=== PATIENT | male | born 1985 | race African-American/Black ===

== ENCOUNTER 2021-02-21 23:03 | Emergency (ER) | payer OTHER, SELFPAY ==
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
[2021-02-21 23:14] VITALS: BP 139/86; PULSE 87; RESP 18; TEMP 36.3; O2SAT 98; BMI 52.2
[2021-02-21 23:20] VITALS: BP 144/86; PULSE 103
[2021-02-22 01:37] VITALS: BP 136/84; PULSE 85; RESP 18; O2SAT 98
== END 2021-02-22 01:49 | disposition home or self-care (01) ==
PROVIDERS: Emergency Provider Emergency Medicine; PCP Internal Medicine
DX: T40.901A Poisoning by unspecified psychodysleptics [hallucinogens], accidental (unintentional), initial encounter (principal); F16.129 Hallucinogen abuse with intoxication, unspecified; Y92.410 Unspecified street and highway as the place of occurrence of the external cause; Z71.51 Drug abuse counseling and surveillance of drug abuser
CPT/HCPCS: 99283

== ENCOUNTER 2021-10-29 00:45 | Emergency (ER) | payer OTHER, SELFPAY ==
[2021-10-29 01:08] VITALS: BP 146/89; PULSE 85; RESP 20; TEMP 36.3; O2SAT 98; BMI 34.9
--- NOTE | 2021-10-29 02:50 | ED_ITS ---
HPI - Dental/Oral General Chief complaint: Dental/Oral Stated complaint: dental pain Time Seen by Provider: 10/29/21 02:43 History of Present Illness HPI Narrative: Patient is a 36-year-old male presents today with having left lower molar pain. The pain is been ongoing for weeks. Getting worse. Patient unfortunately did not get a chance to see a dentist. Presented to the ED for help. Positive history of allergies to penicillin unknown what reaction he has. No coughing or congestion or upper respiratory symptoms no systemic complaints. Previously healthy Related Data Previous Rx's Medication Instructions Recorded clindamycin HCl 300 mg capsule 300 mg PO QID 5 Days #20 cap 10/29/21 (Cleocin HCl) oxycodone 5 mg tablet 5 mg PO Q8H PRN #7 tab 10/29/21 Allergies Allergy/AdvReac Type Severity Reaction Status Date / Time Penicillins Allergy Mild Hives Verified 10/29/21 01:11 Review of Systems Review of Systems: Positive toothache Yes all other systems are reviewed and are negative PMF Past Medical History Attestation statement: The following information was validated with the patient. Medical History Substance abuse Social History Social History Advance Directives: No Advance Directives Information Provided: No Physical Exam Vital Signs: Vital Signs: Last Vital Signs Temp 97.4 F 10/29/21 01:08 Pulse 85 10/29/21 01:08 Resp 20 10/29/21 01:08 BP 146/89 H 10/29/21 01:08 Pulse Ox 98 10/29/21 01:08 BMI result Body Mass Index 34.9 Appearance: Alert. Oriented X3. No acute distress. Eyes: Pupils equal, round and reactive to light. ENT: Pharynx normal. Positive cavity noted in the left 1st molar. There is no abscess palpable. Floor of the mouth is soft. Neck: Normal inspection. Neck supple. No lymph nodes noted. No crepitus CVS: Normal heart rate and rhythm. Pulses normal. Normal S1 and S2 Respiratory: No respiratory distress. Breath sounds normal. No Wheezing. No rales Abdomen: Soft and nontender. No rigidity. No distention. good BS x4 Skin: Skin warm and dry. Normal skin color. Normal skin turgor. Extremities: No lower extremity edema. Neurovascular intact to all extremities. No Lacerations. No Rash Neuro: Oriented X 3. No motor deficit. No sensory deficit. Moving all extermities. No slurred speech MDM - Dental/Oral MDM Narrative Medical decision making narrative: Positive tooth decay. Will give antibiotics. Pain medication. Patient to be discharged home. Posterior pharynx was normal. In stable condition Differential Diagnosis Differential diagnosis: Likely dental caries Lab Data Attestation: I reviewed the patient's lab results. Discharge Plan Discharge Clinical Impression: Dental caries Patient Disposition: Home, Self-Care Instructions: Toothache (ED) Prescriptions: New oxycodone 5 mg tablet 5 mg PO Q8H PRN (Reason: pain) Qty: 7 0RF clindamycin HCl [Cleocin HCl] 300 mg capsule 300 mg PO QID 5 Days Qty: 20 0RF Referrals: [facility] [Provider Group] (Please follow-up with dentist )
[2021-10-29] MEDS: Clindamycin HCL 300 MG CAPSULE PO (03:17)
[2021-10-29] MEDS: HYDROmorphone HCl 2 MG TABLET PO (03:17)
== END 2021-10-29 03:56 | disposition home or self-care (01) ==
PROVIDERS: Emergency Provider Emergency Medicine Emergency Medical Services
DX: K02.9 Dental caries, unspecified (principal); K08.89 Other specified disorders of teeth and supporting structures; F19.10 Other psychoactive substance abuse, uncomplicated
CPT/HCPCS: 99282; 99283

== ENCOUNTER 2021-12-12 00:06 | Emergency (ER) | payer OTHER, SELFPAY ==
--- NOTE | ~2021-12-12 | CT_ITS ---
EXAMINATION: CONTRAST-ENHANCED CT OF THE CHEST; CONTRAST-ENHANCED CT OF THE ABDOMEN AND PELVIS INDICATION: Trauma, chest and abdominal pain COMPARISON: None TECHNIQUE: 85 mL Omnipaque 350 IV contrast was utilized. Multidetector helical imaging was performed through the chest, abdomen, and pelvis. Coronal and sagittal reformatted images were created at the technologist workstation. DLP: 1956 mGy-cm DOSE LOWERING TECHNIQUES: This CT examination was performed using dose optimization techniques as appropriate, variously including the following: - Automated exposure control - Adjustment of mA and/or kV according to patient size (this includes techniques or standardized protocols for targeted exams were dose is matched to indication/reason for exam; i.e. extremities or head) - Use of iterative reconstruction technique FINDINGS: Chest: Detailed parenchymal evaluation is limited due to respiratory motion artifact. No regions of consolidation identified. No pneumothorax or pleural effusion. The visualized thyroid gland is unremarkable. There are subcentimeter mediastinal lymph nodes within the range of normal variation. Cardiac size is within normal limits; no pericardial effusion. The aorta is unremarkable. There is mild fluid distention of the esophagus. No axillary lymphadenopathy is present. Focal density noted in the right breast measuring approximately 3.5 x 1.9 cm. Abdomen/Pelvis: The liver is homogeneous in attenuation without intrahepatic biliary ductal dilatation. The gallbladder is unremarkable. The spleen, pancreas, and adrenal glands are within normal limits. Bilateral nephrograms are symmetric. No hydronephrosis. No obstructing renal or ureteral calculi are present. The urinary bladder is unremarkable. The prostate and seminal vesicles are unremarkable. The stomach is distended with fluid. The small and large bowel are unremarkable without evidence of obstruction or pericolonic inflammatory change. The appendix is unremarkable. No free fluid or free air is identified. The vascular structures are unremarkable. No retroperitoneal or pelvic lymphadenopathy is seen. No acute osseous findings. CT/CT abdomen pelvis w con IMPRESSION: 1. No acute traumatic findings identified in the chest, abdomen, or pelvis. 2. Focal density in the right breast measuring approximately 3.5 cm, which may reflect gynecomastia. Further workup with mammography is recommended. 3. Mild fluid distention of the esophagus, which could be due to reflux or dysmotility. Stomach is also distended with fluid.
[2021-12-12 00:22] VITALS: PULSE 80; RESP 20; TEMP 36.4; O2SAT 98; BMI 34.9
--- NOTE | 2021-12-12 00:53 | ECG_ITS ---
Test Reason : cp Blood Pressure : / mmHG Vent. Rate : 063 BPM Atrial Rate : 063 BPM P-R Int : 160 ms QRS Dur : 078 ms QT Int : 412 ms P-R-T Axes : 043 030 048 degrees QTc Int : 421 ms Normal sinus rhythm Normal ECG No previous ECGs available Referred By: Gaby Lowe Electronically Signed By:Cuate Douglass
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
[2021-12-12] MEDS: Morphine Sulfate 4 MG/ML CARTRIDGE IVPUSH (01:18)
[2021-12-12] MEDS: ondansetron HCL 4 MG/2 ML VIAL IVPUSH ×2 (01:18→03:24)
[2021-12-12] MEDS: HYDROmorphone HCl 1 MG/ML SYRINGE IVPUSH (01:40)
[2021-12-12] MEDS: iohexoL 350 MG/ML 100 ML INFUS..BTL 85 ML IV (02:07)
[2021-12-12 02:45] LABS: Basophils Absolute Auto 0.2 X10*3/uL (0.0-0.2); Basophils Percent Auto 1.3 % (0-2); Eosinophils Absolute Auto 0.8 X10*3/uL (0.0-0.4); Eosinophils Percent Auto 6.3 % (0-4); Hematocrit 46.4 % (42.0-52.0); Hemoglobin 15.4 g/dl (14.0-18.0); Imm Gran Abs Auto 0.05 X10*3/uL (0.00-0.03); Imm Gran Pct Auto 0.4 % (0.0-0.4); Lymphocytes Absolute Auto 2.7 X10*3/uL (1.2-4.9); Lymphocytes Percent Auto 22.6 % (20-40); MANUAL DIFF FLAG NO; Mean Corpuscular HGB Conc 33.2 g/dl (31.0-36.0); Mean Corpuscular Hemoglobin 31.2 pg (27.0-33.0); Mean Corpuscular Volume 94.1 fL (80.0-98.0); Mean Platelet Volume 9.7 fL (9.4-12.4); Monocytes Absolute Auto 1.2 X10*3/uL (0.1-1.2); Monocytes Percent Auto 9.7 % (2-11); Neutrophils Absolute Auto 7.1 x10*3/uL (2.0-8.3); Neutrophils Percent Auto 59.7 % (45-73); Platelet Count 210 X10*3/uL (160-400); Red Blood Count 4.93 X10*6/uL (4.60-5.80); Red Cell Distribution Width 13.3 % (11.0-16.0); White Blood Count 11.9 X10*3/uL (4.8-10.8)
[2021-12-12 03:10] LABS: Anion Gap 11 (12-20); Blood Urea Nitrogen 13 mg/dL (9-16); Calcium 8.7 mg/dL (8.4-10.2); Carbon Dioxide 26 mmol/L (22-29); Chloride 107 mmol/L (96-108); Creatinine Clr Calc Pharmacy 99.4; Estimated Glomerular Filt Rate > 60; Glucose Random 99 mg/dL (60-115); Potassium 4.1 mmol/L (3.3-5.1); Sodium 140 mmol/L (135-145)
== END 2021-12-12 03:40 | disposition home or self-care (01) ==
PROVIDERS: Nurse Practitioner Family; Emergency Provider Internal Medicine
DX: S20.211A Contusion of right front wall of thorax, initial encounter (principal); M54.6 Pain in thoracic spine; N62 Hypertrophy of breast; R10.9 Unspecified abdominal pain; R07.89 Other chest pain; W17.89XA Other fall from one level to another, initial encounter; Y93.9 Activity, unspecified; Y92.9 Unspecified place or not applicable; Y99.9 Unspecified external cause status; Z79.899 Other long term (current) drug therapy
CPT/HCPCS: 36415; 71260; 74177; 80048; 85025; 93005; 96374; 96375; 96376; 99284; J1170; J2270; J2405; Q9967

== ENCOUNTER 2022-06-22 23:39 | Emergency (ER) | payer OTHER, SELFPAY ==
--- NOTE | ~2022-06-22 | CT_ITS ---
EXAMINATION: NONCONTRAST HEAD CT NONCONTRAST CERVICAL SPINE CT INDICATION INFORMATION: Head trauma, neck pain COMPARISON: None TECHNIQUE: Separate noncontrast CT examinations of the head and cervical spine were performed. Coronal head CT images and coronal and sagittal cervical spine images were created at the technologist workstation. DLP: 1482 mGy-cm DOSE LOWERING TECHNIQUES: This CT examination was performed using dose optimization techniques as appropriate, variously including the following: - Automated exposure control - Adjustment of mA and/or kV according to patient size (this includes techniques or standardized protocols for targeted exams were dose is matched to indication/reason for exam; i.e. extremities or head) - Use of iterative reconstruction technique FINDINGS: Head: There is no evidence of acute intracranial hemorrhage or territorial infarction. No abnormal mass-effect or midline shift is seen. Hall to white matter differentiation is well preserved. No extra-axial fluid collections are identified. The ventricles are normal in size. There is no abnormal attenuation within the brain parenchyma. The osseous structures and soft tissues are normal. The mastoid air cells and visualized portions of the paranasal sinuses are well-aerated. Cervical spine: There is anatomic alignment of the vertebral bodies and posterior elements. Vertebral body heights are maintained. Disc spaces are maintained. Mild degenerative change at C4-C5. No evidence of acute fracture. No prevertebral soft tissue swelling. Visualized portions of the lung apices are unremarkable. The thyroid gland is unremarkable. CT/CT cervical spine wo IV con IMPRESSION: No acute findings identified in the head or cervical spine.
--- NOTE | ~2022-06-22 | CT_ITS ---
EXAMINATION: NONCONTRAST HEAD CT NONCONTRAST CERVICAL SPINE CT INDICATION INFORMATION: Head trauma, neck pain COMPARISON: None TECHNIQUE: Separate noncontrast CT examinations of the head and cervical spine were performed. Coronal head CT images and coronal and sagittal cervical spine images were created at the technologist workstation. DLP: 1482 mGy-cm DOSE LOWERING TECHNIQUES: This CT examination was performed using dose optimization techniques as appropriate, variously including the following: - Automated exposure control - Adjustment of mA and/or kV according to patient size (this includes techniques or standardized protocols for targeted exams were dose is matched to indication/reason for exam; i.e. extremities or head) - Use of iterative reconstruction technique FINDINGS: Head: There is no evidence of acute intracranial hemorrhage or territorial infarction. No abnormal mass-effect or midline shift is seen. Hall to white matter differentiation is well preserved. No extra-axial fluid collections are identified. The ventricles are normal in size. There is no abnormal attenuation within the brain parenchyma. The osseous structures and soft tissues are normal. The mastoid air cells and visualized portions of the paranasal sinuses are well-aerated. Cervical spine: There is anatomic alignment of the vertebral bodies and posterior elements. Vertebral body heights are maintained. Disc spaces are maintained. Mild degenerative change at C4-C5. No evidence of acute fracture. No prevertebral soft tissue swelling. Visualized portions of the lung apices are unremarkable. The thyroid gland is unremarkable. CT/CT head/brain wo IV con IMPRESSION: No acute findings identified in the head or cervical spine.
[2022-06-22 23:48] VITALS: BP 126/77; PULSE 69; RESP 20; TEMP 36.6; O2SAT 92; BMI 36.1
--- NOTE | 2022-06-23 00:27 | ED_ITS ---
HPI - Head Injury General Chief complaint: Head Injury Stated complaint: hit head, dizzy, head pain Time Seen by Provider: 06/23/22 00:16 Source: patient Mode of arrival: ambulatory Limitations: no limitations History of Present Illness HPI Narrative: 37-year-old male presents with head injury. Patient was attempting to get into his car and hit his forehead on the door frame. Patient has been dizzy, has been nauseous and vomiting since the injury with headache and neck pain. MD Complaint: head injury and head pain Onset (ago): hour(s) (Within the hour of arrival) Loss of Consciousness: second(s) (2) Location of injury: frontal Severity: moderate Severity scale (1-10): 10 Quality: aching Radiation: neck Other Injuries: none Associated symptoms: nausea, vomiting and other (Tremors) Related Data Previous Rx's Medication Instructions Recorded clindamycin HCl 300 mg capsule 300 mg PO QID 5 days #20 caps 10/29/21 (Cleocin HCl) oxycodone 5 mg tablet 5 mg PO Q8H PRN pain #7 tabs 10/29/21 oxycodone 5 mg tablet 5 mg PO Q6H PRN pain 3 days #12 12/12/21 tabs Allergies Allergy/AdvReac Type Severity Reaction Status Date / Time Penicillins Allergy Mild Hives Verified 06/22/22 23:52 Review of Systems Review of Systems: Constitutional: No Fever, No Chills Cardiovascular: No Chest Pain, No SOB Respiratory: No Cough, No Dyspnea Gastrointestinal: No Nausea, No Vomiting, No Diarrhea, No abdominal Pain Genitourinary: No Dysuria, No Hematuria, no cauda equina Musculoskeletal: positive neck pain, No Myalgias, No Joint Swelling Skin: No Skin lacerations, No rash, no bruises or wounds Neuro: No Weakness, No Numbness, No Paresthesias, No Loss of Consciousness, No Dizziness, positive Headache Yes all other systems are reviewed and are negative [facility] Past Medical History Attestation statement: The following information was validated with the patient. Source: old records reviewed Medical History Substance abuse Social History Social History Alcohol intake: current Alcohol intake frequency: holidays/special occasions only Patient Tobacco Use Status: Current everyday Tobacco user Advance Directives: No Advance Directives Information Provided: Yes Physical Exam Vital Signs: Vital Signs: Last Vital Signs Temp 97.8 F 06/22/22 23:48 Pulse 69 06/22/22 23:48 Resp 20 06/22/22 23:48 BP 126/77 06/22/22 23:48 Pulse Ox 92 06/22/22 23:48 O2 Del Method 06/22/22 23:48 BMI result Body Mass Index 36.1 Appearance: Alert. Oriented X3. Mild distress. Eyes: Pupils equal, round and reactive to light. ENT: Pharynx normal. Neck: Normal inspection. Neck supple. Bilateral trapezius pain. No vertebral tenderness. No step-offs. No nuchal rigidity. CVS: Normal heart rate and rhythm. Pulses normal. Respiratory: No respiratory distress. Breath sounds normal. Abdomen: Soft and nontender. Skin: Skin warm and dry. Normal skin color. Normal skin turgor. Extremities: No lower extremity edema. Gait well-balanced well coordinated. Neuro: No motor deficit. No sensory deficit. Cranial nerves 2-12 intact. Course Course Course Narrative: 37-year-old male presents with head injury. Patient hit his head on the door frame of his car. There was report of loss of consciousness for approximately 2 seconds, when patient went home continued with dizziness, nausea, vomiting, and photophobia with neck pain and headache. Patient does have an odd affect however is able to follow commands. NIH stroke scale is 0, [place] coma scale 15. No vertebral tenderness or step-offs. Cranial nerves 2-12 intact. Considering patient is reporting of severe pain, has photophobia nausea and vomiting, will order CT scan of head and cervical spine. Patient does not report drinking alcohol or participating in illicit drugs. Denies cauda equina and is afebrile, nontoxic, and has vital signs within normal limits. Patient's prior medical history does indicate polysubstance abuse with alcohol and ecstasy. 01:34 CT scan of head and neck negative for acute findings requiring emergent intervention. I did discuss post concussive protocol with patient and patient's family and need to follow-up with primary care physician. Patient verbalized understanding of and agrees plan of care discharge home. Verbalized understanding of signs symptoms indicating need for emergent intervention. Medical Decision Making Differential Diagnosis Differential Diagnoses: The differential diagnosis associated with the pres entation includes Concussion, subdural, cervical spine fracture, cervical strain Independent Interpretation I performed an independent interpretation of an: CT Scan Radiology Impression Discussion of test interpretation with radiology: I have reviewed the radiologist's reading. Radiologist Impression: FINDINGS: Head: There is no evidence of acute intracranial hemorrhage or territorial infarction. No abnormal mass-effect or midline shift is seen. Hall to white matter differentiation is well preserved. No extra-axial fluid collections are identified. The ventricles are normal in size. There is no abnormal attenuation within the brain parenchyma. The osseous structures and soft tissues are normal. The mastoid air cells and visualized portions of the paranasal sinuses are well-aerated. Cervical spine: There is anatomic alignment of the vertebral bodies and posterior elements. Vertebral body heights are maintained. Disc spaces are maintained. Mild degenerative change at C4-C5. No evidence of acute fracture. No prevertebral soft tissue swelling. Visualized portions of the lung apices are unremarkable. The thyroid gland is unremarkable. CT/CT head/brain wo IV con IMPRESSION: No acute findings identified in the head or cervical spine. ? Independent Historian Clinical information obtained from an independent historian. History obtained from or confirmed by: Spouse External Record Review External record reviewed: Outpatient record and Prior outpatient labs Discharge Plan Discharge Clinical Impression: Concussion without loss of consciousness, Cervical strain Patient Disposition: Home, Self-Care Instructions: Cervical Strain (ED), Concussion (ED), Post Concussion Syndrome (ED) Additional Instructions: You were evaluated for head and neck injury. CT scan of head and neck are negative for acute findings requiring emergent intervention. Your injuries are consistent with concussion and cervical strain. Must follow up closely with her primary care physician for post concussive protocol. Take Tylenol 650 mg every 6 hours as needed for headache and pain management. Thank you for choosing this emergency department for evaluation. Please follow-up with primary care physician as needed. Return to the emergency department for any new, concerning, or worsening symptoms. Prescriptions: No Action oxycodone 5 mg tablet 5 mg PO Q8H PRN (Reason: pain) Qty: 7 0RF clindamycin HCl [Cleocin HCl] 300 mg capsule 300 mg PO QID 5 Days Qty: 20 0RF oxycodone 5 mg tablet 5 mg PO Q6H PRN (Reason: pain) 3 Days Qty: 12 0RF Rx Instructions: Partial Fill upon patient request. Right rib contusion Referrals: Physician,Nonstaff [Primary Care Provider] - 1 week (Primary care physician for post concussive protocol) Stand Alone Forms: Work/School Release
== END 2022-06-23 01:49 | disposition home or self-care (01) ==
PROVIDERS: Emergency Provider Internal Medicine
DX: S06.0X0A Concussion without loss of consciousness, initial encounter (principal); R42 Dizziness and giddiness; M54.2 Cervicalgia; Y29.XXXA Contact with blunt object, undetermined intent, initial encounter; Y93.9 Activity, unspecified; Y92.810 Car as the place of occurrence of the external cause; Y99.9 Unspecified external cause status
CPT/HCPCS: 70450; 72125; 99282; 99283

== ENCOUNTER 2023-02-02 19:53 | Emergency (ER) | payer OTHER, SELFPAY ==
--- NOTE | ~2023-02-02 | XR_ITS ---
EXAMINATION: XR WRIST, RIGHT CLINICAL INFORMATION: Pain, injury COMPARISON: None available. TECHNIQUE: Four views of the right wrist. FINDINGS: A screw is present in the scaphoid bone, and the possibility of a nonunited scaphoid fracture cannot be excluded. There is a somewhat flattened appearance of the lunate, favored to be chronic. No definite acute fracture is seen. Articular alignment across the wrist appears maintained. No significant focal soft tissue abnormality identified. XR/XR wrist RT min 3V IMPRESSION: 1. No definite acute findings. 2. Screw in the scaphoid bone; the possibility of a nonunited scaphoid fracture cannot be excluded. 3. Somewhat flattened appearance of the lunate, favored to be chronic and which could be due to avascular necrosis.
--- NOTE | 2023-02-02 20:35 | ED_ITS ---
HPI - Extremity Injury (Upper) General Chief Complaint: Extremity Injury, Upper Stated Complaint: r wrist pain Time Seen by Provider: 02/02/23 21:56 Source: patient and family Mode of arrival: ambulatory Limitations: no limitations History of Present Illness HPI narrative: 37-year-old male with history of previous surgery on his right wrist presents the ER for evaluation of acute onset of right thumb and right wrist pain after injuring his hand today and karate class. 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 He thinks he might have been his some backward and hit his wrist the wrong way against the person. Reported immediate pain and swelling to the base of the thumb, hand and pain into the wrist. It is worse with any range of motion or palpation. He denies any numbness or tingling. He states the pain is severe. complaint: injury to: right, wrist and hand Onset (ago): hour(s) Other injuries: none Severity: severe Relieving factors: immobilization Exacerbating factors: movement of extremity Context: sports-related injury Associated symptoms: denies other symptoms Related Data Previous Rx's Medication Instructions Recorded clindamycin HCl 300 mg capsule 300 mg PO QID 5 days #20 caps 10/29/21 (Cleocin HCl) oxycodone 5 mg tablet 5 mg PO Q8H PRN pain #7 tabs 10/29/21 oxycodone 5 mg tablet 5 mg PO Q6H PRN pain 3 days #12 12/12/21 tabs Allergies Allergy/AdvReac Type Severity Reaction Status Date / Time Penicillins Allergy Mild Hives Verified 06/22/22 23:52 shellfish derived Allergy Hives Verified 02/02/23 20:38 Review of Systems Review of Systems: Yes all other systems are reviewed and are negative [facility] Past Medical History Medical History Substance abuse Social History Social History Alcohol intake: current Alcohol intake frequency: holidays/special occasions only Patient Tobacco Use Status: Current everyday Tobacco user Physical Exam Vital Signs: Vital Signs: Last Vital Signs Temp 98.4 F 02/02/23 21:13 Pulse 70 02/02/23 21:13 Resp 16 02/02/23 21:13 BP 155/88 H 02/02/23 21:13 Pulse Ox 98 02/02/23 21:13 O2 Del Method Room Air 02/02/23 21:13 BMI result Body Mass Index 36.0 Appearance: Alert. Oriented X3. No acute distress. HEENT: normal inspection CVS: Normal heart rate and rhythm. Pulses normal. Respiratory: No respiratory distress. Skin: Skin warm and dry. Normal skin color. Normal skin turgor. No rashes. Extremities: mild-moderate swelling of the base of the thumb/thenar emience extending to the dorsal side of the hand with tenderness of the scaphoid and distal radius, 2+ radial pulse. NV intact. unable to oppose thumb to 4th and 5th digits. weak district engineer due to pain. pain with flexion of the thumb. weak thumb in both adduction and abduction Neuro: Oriented X 3. No motor deficit. No sensory deficit. Course Course Course Narrative: This is an RME: Additional HPI, ROS, PE not included below will be deferred to primary provider. Patient is a 37-year-old male presents emergency department for evaluation of pain to the right wrist/thumb. Few hours prior to arrival above demonstrating something during karate he sustained injury to the wrist resulting in pain that has become progressively worse. He states he is unable to lift or district engineer anything due to the pain. He reports a history of screws placed into the wrist approximately 11 months ago. Associated numbness. 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 Described as both a hyperextension injury and blunt injury. Limited ROM and diffuse tenderness on exam. XR reviewed - will place in thumb spica splint and have him f/u with his orthopedist at [facility]. stable for d/c home with pain control, RICE and outpatient follow up Differential Diagnosis Differential Diagnoses: The differential diagnosis associated with the presentation includes scaphoid fracture, hardware disturbance, ligamentous injury, wrist fracture, spr ain Independent Interpretation I performed an independent interpretation of an: Plain X-Ray Interpretation: no acute fracture, hardware in place, agree w/ radiology read Radiology Impression Discussion of test interpretation with radiology: I have reviewed the radiologist's reading. Radiologist Impression: EXAMINATION: XR WRIST, RIGHT CLINICAL INFORMATION: Pain, injury COMPARISON: None available. TECHNIQUE: Four views of the right wrist. FINDINGS: A screw is present in the scaphoid bone, and the possibility of a nonunited scaphoid fracture cannot be excluded. There is a somewhat flattened appearance of the lunate, favored to be chronic. No definite acute fracture is seen. Articular alignment across the wrist appears maintained. No significant focal soft tissue abnormality identified. XR/XR wrist RT min 3V IMPRESSION: 1. No definite acute findings. 2. Screw in the scaphoid bone; the possibility of a nonunited scaphoid fracture cannot be excluded. 3. Somewhat flattened appearance of the lunate, favored to be chronic and which could be due to avascular necrosis. Independent Historian Clinical information obtained from an independent historian. History obtained from or confirmed by: Spouse External Record Review External record reviewed: Prior outpatient labs and Prior outpatient radiology Prescription Management I considered prescription management with: Pain Medication Critical Care Time Critical Care Time Critical Care Time: No Discharge Plan Discharge Clinical Impression: Injury of thumb, right, Injury of wrist, right Patient Disposition: Home, Self-Care Instructions: Wrist Injury (ED) Additional Instructions: With the provided splint until your evaluated by Orthopedics. Take anti-inflammatory pain medications and Tylenol as needed for pain. Elevate your hand when possible. XR/XR wrist RT min 3 IMPRESSION: 1. No definite acute findings. 2. Screw in the scaphoid bone; the possibility of a nonunited scaphoid fracture cannot be excluded. 3. Somewhat flattened appearance of the lunate, favored to be chronic and which could be due to avascular necrosis. Prescriptions: No Action oxycodone 5 mg tablet 5 mg PO Q8H PRN (Reason: pain) Qty: 7 0RF clindamycin HCl [Cleocin HCl] 300 mg capsule 300 mg PO QID 5 Days Qty: 20 0RF oxycodone 5 mg tablet 5 mg PO Q6H PRN (Reason: pain) 3 Days Qty: 12 0RF Rx Instructions: Partial Fill upon patient request. Right rib contusion Referrals: [facility] [Provider Group] ( XR/XR wrist RT min 3V IMPRESSION: 1. No definite acute findings. 2. Screw in the scaphoid bone; the possibility of a nonunited scaphoid fracture cannot be excluded. 3. Somewhat flattened appearance of the lunate, favored to be chronic and which could be due to avascular necrosis.) Interventions: ED Discharge Assessment Last Done: 02/02/23 22:40 Discharge Date/Time: 02/02/23 22:40
[2023-02-02 20:40] VITALS: BP 129/84; PULSE 75; RESP 18; TEMP 36.6; O2SAT 100; BMI 36.0
[2023-02-02 21:13] VITALS: BP 155/88; PULSE 70; RESP 16; TEMP 36.9; O2SAT 98
[2023-02-02] MEDS: oxyCODONE HCl Immed Release 5 MG TABLET PO (22:25)
[2023-02-02] MEDS: Ibuprofen 600 MG TABLET PO (22:25)
== END 2023-02-02 22:40 | disposition home or self-care (01) ==
PROVIDERS: Emergency Provider Emergency Medicine Emergency Medical Services
DX: S69.91XA Unspecified injury of right wrist, hand and finger(s), initial encounter (principal); M79.641 Pain in right hand; M25.531 Pain in right wrist; X58.XXXA Exposure to other specified factors, initial encounter; Y93.9 Activity, unspecified; Y92.9 Unspecified place or not applicable; Y99.9 Unspecified external cause status; Z79.899 Other long term (current) drug therapy; F17.200 Nicotine dependence, unspecified, uncomplicated; Z71.6 Tobacco abuse counseling
CPT/HCPCS: 29130; 73110; 99283; 99284

== ENCOUNTER 2023-02-21 08:24 | Outpatient (AMB) | payer OTHER, SELFPAY ==
--- NOTE | 2023-02-21 08:26 | A.OFFVIS_ITS ---
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 Patient reports injuring his hand in karate class. 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 Patient reports having swelling on the dorsal aspect of the wrist and on the base of the thumb. Having numbness and tingling around the same areas. Allergies Penicillins Allergy (Mild, Verified 02/21/23 08:33) Hives shellfish derived Allergy (Verified 02/21/23 08:33) Hives HPI pharmacy technician inpatient- Injury of thumb, right and wrist HPI Details The patient is a 37-year-old right-hand dominant man who was recently working in a warehouse but stopped working about 2 weeks ago because of pain in his right dorsal forearm and pain in his right wrist. The patient reports that he 1st had surgery at [facility] in 2002 for his right wrist when they put a screw into the scaphoid. He reports that in 2006 he [place] and when he was seen at [facility] they said that they could not get the screw out, and kind of left things the way they were but told him a made needs surgery later. He says his chief complaint is of the pain in his right wrist and the secondary pain is the pain in the dorsal radial aspect of his right forearm. He denies any new particular injury. [facility] Medical History Substance abuse Social History Alcohol intake: current Alcohol intake frequency: holidays/special occasions only Patient Tobacco Use Status: Current everyday Tobacco user Current occupational status: employed Physical Exam Vital Signs: BMI result Body Mass Index 36.1 Const General: cooperative, healthy appearing and no acute distress Orientation/consciousness: oriented to person and oriented to place HEENT Head: Yes normocephalic and Yes atraumatic Eyes EOM: EOMs intact bilaterally Resp Effort & Inspection: normal respiratory effort and able to speak in complete sentences Cardio Jugular venous distension: no JVD Skin General skin exam: turgor normal Rashes: no rashes Neuro General: oriented to person and oriented to place Extrem Other: Evaluation of right Upper Extremity: Neuro: Median, ulnar, radial nerves motor and sensory grossly intact. Vascular: Cap refill brisk. ROM: Can bring fingers closed to a fist and back out to full or nearly full extension. No locking or catching Can oppose his thumb to all fingertips. Skin: No lacerations or abrasions. General: No eccymosis. No erythema or evidence of infection. Radiographs: Three views plus a scaphoid view of the right wrist show a right scaphoid fracture nonunion with a headless compression screw that has now withdrawn into the distal fragment and the trapezium. It is no longer within the proximal pole at all. There is some increased radiodensity in the lunate suspicious for possible avascular necrosis. There also appears to be some decreased density and a portion of the distal radius which may indicate that he had a previous bone grafting procedure from this area. 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 Patient says he cannot be seen at [facility] because he owes a large bill there and they want to see him right now. 2. Possible right lateral epicondylitis I educated him about these conditions. I do think that he would likely benefit from an operative procedure for the right scaphoid nonunion. I had recommended that he be seen again at [facility] but again he cannot be seen there. A total most possible he might benefit from a vascularized bone graft but this is something that would need to be considered at level 1 trauma center that more frequently treats these more complicated issues.. He is going to try possible [facility] in [place] for referral. I instructed him to make sure he picks up his operative report from [facility] and then the clinical notes from there was that would be helpful to the neck surgeon. 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
[2023-02-21 08:33] VITALS: BMI 36.1
== END 2023-02-21 09:39 | disposition home or self-care (01) ==
PROVIDERS: Visit Provider Orthopaedic Surgery
DX: S62.001K Unspecified fracture of navicular [scaphoid] bone of right wrist, subsequent encounter for fracture with nonunion (principal); M25.331 Other instability, right wrist
CPT/HCPCS: 99203

== ENCOUNTER → 2023-02-21 08:24 | Outpatient (BNVA) | payer OTHER, SELFPAY | PROVIDERS: Visit Provider Physician Assistant ==

== ENCOUNTER 2023-04-11 21:13 | Emergency (ER) | payer OTHER, SELFPAY ==
--- NOTE | ~2023-04-11 | XR_ITS ---
EXAMINATION: XR KNEE, RIGHT CLINICAL INFORMATION: Blunt trauma. Pain. COMPARISON: None available. TECHNIQUE: AP, lateral, and both oblique views of the right knee. FINDINGS: No fracture or malalignment. Bone mineralization is normal. Joint spaces well-preserved. Small joint effusion. No appreciable subcutaneous gas. XR/XR knee RT 3V IMPRESSION: Small joint effusion. No acute fracture or malalignment.
[2023-04-11 21:20] VITALS: BP 118/73; PULSE 87; RESP 20; TEMP 36.6; O2SAT 94; BMI 37.4
--- NOTE | 2023-04-11 22:13 | PC.NURSE ---
right knee is tender. no obvious swelling, warmth or discoloration. reports that he's unable to bear weight. is in a WC at this time.
--- NOTE | 2023-04-11 22:37 | ED.LOWEXIN ---
HPI - Extremity Injury (Lower) General Chief Complaint: Extremity Injury, Lower Stated Complaint: R knee injury Time Seen by Provider: 04/11/23 22:27 Source: patient and family Mode of arrival: wheelchair Limitations: no limitations History of Present Illness HPI Narrative: Patient comes to the emergency room complaining of right knee pain. 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 Patient felt a crunching noise coming from the knee. Since then, patient has not been able to bear weight. Patient denies any other injuries. Patient on blood thinners. Related Data Previous Rx's Medication Instructions Recorded clindamycin HCl 300 mg capsule 300 mg PO QID 5 days #20 caps 10/29/21 (Cleocin HCl) oxycodone 5 mg tablet 5 mg PO Q8H PRN pain #7 tabs 10/29/21 oxycodone 5 mg tablet 5 mg PO Q6H PRN pain 3 days #12 12/12/21 tabs naproxen 500 mg tablet 500 mg PO BID PRN pain #14 tabs 04/11/23 Allergies Allergy/AdvReac Type Severity Reaction Status Date / Time Penicillins Allergy Mild Hives Verified 02/21/23 08:33 shellfish derived Allergy Hives Verified 02/21/23 08:33 shrimp Allergy Hives Verified 04/11/23 21:25 Review of Systems Review of Systems: Constitutional : No Weight loss, No Fever, No Chills, No Night Sweats, No Fatigue, No Malaise ENT/Mouth : No Hearing loss, No Ear Pain, No Nasal Congestion, No Sinus Pain, No Hoarseness, No sore throat, No Rhinorrhea, No Swallowing Difficulty Eyes: No Eye Pain, No Swelling, No Redness, No Foreign Body, No Discharge, No Vision Changes Cardiovascular : No Chest Pain, No SOB, No Dyspnea on Exertion, No Orthopnea, No Edema, No Palpitations Respiratory : No Cough, No Sputum, No Wheezing, No Smoke Exposure, No Dyspnea Gastrointestinal : No Nausea, No Vomiting, No Diarrhea, No Constipation, No abdominal Pain, No Hematochezia, No Melena Genitourinary : no irregular bleeding, No Dysuria, No Urinary Frequency, No Hematuria, No Urinary Incontinence, No Urgency, No Flank Pain, No Urinary Flow Changes, No Hesitancy Musculoskeletal : Complaining of right knee pain and swelling, No Myalgias, No Joint Swelling Skin : No Skin Lesions, No rash Neuro : No Weakness, No Numbness, No Paresthesias, No Loss of Consciousness, No Dizziness, No Headache Psych : No Anxiety/Panic, No Depression, No SI/HI/AH/VH, No Social Issues, Heme/Lymph: No Bruising, No Bleeding,No Lymphadenopathy Endocrine : No Polyuria, No Polydipsia, No Temperature Intolerance [facility] Past Medical History Medical History Substance abuse Social History Social History Alcohol intake: current Alcohol intake frequency: holidays/special occasions only Patient Tobacco Use Status: Current everyday Tobacco user Advance Directives: No Advance Directives Information Provided: No Current occupational status: employed Physical Exam Vital Signs: Vital Signs: Last Vital Signs Temp 98 F 04/11/23 21:20 Pulse 87 04/11/23 21:20 Resp 20 04/11/23 21:20 BP 118/73 04/11/23 21:20 Pulse Ox 94 04/11/23 21:20 O2 Del Method Room Air 04/11/23 21:20 BMI result Body Mass Index 37.4 Const: Other: Appearance: Alert. Oriented X3. No acute distress. Eyes: Pupils equal, round and reactive to light. ENT: Pharynx normal. Neck: Normal inspection. Neck supple. No lymph nodes noted. No crepitus CVS: Normal heart rate and rhythm. Pulses normal. Normal S1 and S2 Respiratory: No respiratory distress. Breath sounds normal. No Wheezing. No rales Abdomen: Soft and nontender. No rigidity. No distention. Skin: Skin warm and dry. Normal skin color. Normal skin turgor. Extremities: No lower extremity edema. Right knee is mildly swollen, pain to palpation over the patella, unable to flex the knee due to pain Neuro: Oriented X 3. No motor deficit. No sensory deficit. Moving all extremities. No slurred speech. CN 2 through 12 grossly intact Psych: calm, cooperative, normal affect Medications Administered Discontinued Medications Generic Name Dose Route Start Last Admin Trade Name Freq PRN Reason Stop Dose Admin Ibuprofen 600 mg 04/11/23 22:29 04/11/23 23:05 Ibuprofen 600 Mg Tablet PO 04/11/23 22:30 600 mg ONCE ONE Administration Medical Decision Making Medical Decision Making [facility] Narrative: -my interpretation of x-ray of the knee: No fracture, normal alignment, small effusion -patient was provided with a knee immobilizer and crutches. -discussed with the patient that patient may have a contusion versus ligament injury versus meniscus tear -if patient does not improve within the next days, patient may need an MRI and follow-up with orthopedics. Differential Diagnosis Differential Diagnoses: The differential diagnosis associated with the presentation includes (As above) Independent Interpretation I performed an independent interpretation of an: Plain X-Ray Radiology Impression Discussion of test interpretation with radiology: I have reviewed the radiologist's reading. Radiologist Impression: FINDINGS: No fracture or malalignment. Bone mineralization is normal. Joint spaces well-preserved. Small joint effusion. No appreciable subcutaneous gas. XR/XR knee RT 3V IMPRESSION: Small joint effusion. No acute fracture or malalignment. Independent Historian Clinical information obtained from an independent historian. History obtained from or confirmed by: Spouse Discharge Plan Discharge Clinical Impression: Injury of knee, Effusion of knee Patient Disposition: Home, Self-Care Instructions: Swollen Knee Joint (ED), R.I.C.E. Treatment (ED) Additional Instructions: Please follow-up with your primary care physician tomorrow. If you have any worsening or new symptoms, please return to the emergency room or call 911 Prescriptions: New naproxen 500 mg tablet 500 mg PO BID PRN (Reason: pain) Qty: 14 0RF No Action oxycodone 5 mg tablet 5 mg PO Q8H PRN (Reason: pain) Qty: 7 0RF clindamycin HCl [Cleocin HCl] 300 mg capsule 300 mg PO QID 5 Days Qty: 20 0RF oxycodone 5 mg tablet 5 mg PO Q6H PRN (Reason: pain) 3 Days Qty: 12 0RF Rx Instructions: Partial Fill upon patient request. Right rib contusion Referrals: Alejandra Grissom PA-C [Physician Blade Sharpener] - 04/15/23
[2023-04-11] MEDS: Ibuprofen 600 MG TABLET PO (23:05)
--- NOTE | 2023-04-12 00:31 | PC.NURSE ---
pediatric intensive physician placed r knee immobilizer, crutches and crutch training provided by pediatric intensive physician this rn noted cms intact. pt reports feeling relief from knee immobilizer. pt utilized crutches at discharge. [facility] with [facility]. pt verbalized understanding of discharge plan
== END 2023-04-12 00:33 | disposition home or self-care (01) ==
PROVIDERS: Emergency Provider Emergency Medicine
DX: M25.461 Effusion, right knee (principal); M25.561 Pain in right knee
CPT/HCPCS: 73562; 99283; 99284

== ENCOUNTER 2023-08-14 04:11 | Emergency (ER) | payer OTHER, SELFPAY ==
--- NOTE | ~2023-08-14 | CT_ITS ---
EXAMINATION: CT ABDOMEN AND PELVIS WITHOUT CONTRAST CLINICAL INFORMATION: Left flank pain. COMPARISON: None available. TECHNIQUE: Multidetector volumetric imaging was performed from the superior aspect of the liver through the pubic symphysis. Sagittal and coronal reformatted images were obtained on the technologist's workstation. This CT examination was performed using dose optimization techniques as appropriate, variously including the following: *Automated exposure control *Adjustment of mA and/or kV according to patient size (this includes techniques or standardized protocols for targeted exams where dose is matched to indication/reason for exam; i.e. extremities or head) *Use of iterative reconstruction technique DLP: 686 mGy-cm FINDINGS: LUNG BASES: The visualized lung bases are unremarkable. LIVER, GALLBLADDER, AND BILIARY TREE: The liver is normal in size, shape, and attenuation. No focal hepatic lesion or biliary ductal dilatation is present. The gallbladder is unremarkable with no evidence of radiopaque gallstones, gallbladder wall thickening, or obvious pericholecystic inflammatory changes. PANCREAS: Unremarkable. SPLEEN: Unremarkable. ADRENAL GLANDS: Unremarkable. KIDNEYS AND URETERS: The kidneys are normal in size, shape, and attenuation. There is a 2 mm calculus midpole left kidney. There is mild left hydronephrosis and hydroureter extending into the pelvis. There is a 3.5 mm calculus projecting into the left urinary bladder. BLADDER: Unremarkable. GASTROINTESTINAL TRACT: The small and large bowel are unremarkable. The appendix is unremarkable. ABDOMINAL WALL: No significant hernia is appreciated. LYMPH NODES: Normal. VASCULAR: Unremarkable. PELVIC VISCERA: Unremarkable. OSSEOUS STRUCTURES: Unremarkable. CT/CT abdomen pelvis wo IV con IMPRESSION: 3.5 mm left ureterovesicular junction calculus with mild left hydroureter and hydronephrosis. Nonobstructing 2 mm calculus midpole left kidney. Fleischner guidelines were followed.
[2023-08-14 04:20] VITALS: BP 147/78; PULSE 80; RESP 22; TEMP 36.4; O2SAT 98; BMI 36.6
[2023-08-14 04:35] LABS: Hematocrit 45.7 % (42.0-52.0); Hemoglobin 15.5 g/dl (14.0-18.0); Mean Corpuscular HGB Conc 33.9 g/dl (31.0-36.0); Mean Corpuscular Hemoglobin 31.9 pg (27.0-33.0); Platelet Count 215 X10*3/uL (160-400); Red Blood Count 4.86 X10*6/uL (4.60-5.80); Red Cell Distribution Width 13.1 % (11.0-16.0); White Blood Count 14.9 X10*3/uL (4.8-10.8)
[2023-08-14 04:50] LABS: Alanine Aminotransferase 34 U/L (0-40); Albumin Level 4.2 g/dL (3.5-5.0); Alkaline Phosphatase 66 U/L (39-117); Anion Gap 15 (12-20); Aspartate Amino Transferase 26 U/L (5-37); Bilirubin Total 0.6 mg/dL (0.0-1.0); Blood Urea Nitrogen 13 mg/dL (9-16); Calcium 8.8 mg/dL (8.4-10.2); Carbon Dioxide 24 mmol/L (22-29); Chloride 106 mmol/L (96-108); Creatinine Clr Calc Pharmacy 64.6; Estimated Glomerular Filt Rate 46; Glucose Random 149 mg/dL (60-115); Lipase 61 U/L (8-78); Potassium 3.9 mmol/L (3.3-5.1); Sodium 141 mmol/L (135-145); Total Protein 7.4 g/dL (6.5-8.0)
--- NOTE | 2023-08-14 05:07 | ED.ABDPAIN ---
HPI - Abdominal Pain General Chief Complaint: Abdominal Pain Stated Complaint: abd pain Time Seen by Provider: 08/14/23 04:55 History of Present Illness HPI narrative: Patient is a 38-year-old male presents today with having pain in the left flank area radiating to the left lower quadrant. Patient has a history of kidney stone. There has no fever no chills. Positive nausea. No diaphoresis. Patient is from home. No chest pain or shortness of breath. Related Data Previous Rx's Medication Instructions Recorded clindamycin HCl 300 mg capsule 300 mg PO QID 5 days #20 caps 10/29/21 (Cleocin HCl) oxycodone 5 mg tablet 5 mg PO Q8H PRN pain #7 tabs 10/29/21 oxycodone 5 mg tablet 5 mg PO Q6H PRN pain 3 days #12 12/12/21 tabs naproxen 500 mg tablet 500 mg PO BID PRN pain #14 tabs 04/11/23 ondansetron 4 mg disintegrating 4 mg PO TID PRN nausea and 08/14/23 tablet vomiting 5 days #10 tabs oxycodone 5 mg tablet 5 mg PO Q8H PRN pain #7 tabs 08/14/23 tamsulosin 0.4 mg capsule (Flomax) 0.4 mg PO DAILY #7 caps 08/14/23 Allergies Allergy/AdvReac Type Severity Reaction Status Date / Time Penicillins Allergy Mild Hives Verified 02/21/23 08:33 shellfish derived Allergy Hives Verified 02/21/23 08:33 shrimp Allergy Hives Verified 04/11/23 21:25 Review of Systems Review of Systems Positive abdominal pain Yes all other systems are reviewed and are negative [facility] Past Medical History Attestation statement: The following information was validated with the patient. Medical History Substance abuse Social History Social History Alcohol intake: current Alcohol intake frequency: holidays/special occasions only Patient Tobacco Use Status: Current everyday Tobacco user Advance Directives: No Advance Directives Information Provided: No Current occupational status: employed Physical Exam ED Vital Signs: Vital Signs - 24 hr 08/14/23 04:20 Temperature 97.5 F Pulse Rate 80 Respiratory Rate 22 H Blood Pressure 147/78 H Pulse Oximetry 98 Oxygen Delivery Method Room Air BMI result Body Mass Index 36.6 Appearance: Alert. Oriented X3. No acute distress. Eyes: Pupils equal, round and reactive to light. ENT: Pharynx normal. Neck: Normal inspection. Neck supple. No lymph nodes noted. No crepitus CVS: Normal heart rate and rhythm. Pulses normal. Normal S1 and S2 Respiratory: No respiratory distress. Breath sounds normal. No Wheezing. No rales Abdomen: Soft and nontender. No rigidity. No distention. good BS x4 Skin: Skin warm and dry. Normal skin color. Normal skin turgor. Extremities: No lower extremity edema. Neurovascular intact to all extremities. No Lacerations. No Rash Neuro: Oriented X 3. No motor deficit. No sensory deficit. Moving all extermities. No slurred speech Medical Decision Making Medical Decision Making [facility] Narrative: Positive left flank pain. No fever no chills. History of kidney stone positive radiation to the left lower quadrant consistent with kidney stones. Will give pain medication. Nausea medication. Labs ordered CT scan of the abdomen pelvis ordered. IV fluids ordered Patient given a dose of Toradol along with narcotics IV fluid with good resolution of pain. CT scan showed a left UVJ stone likely causing the pain. Awaiting urine if it is negative for discharge patient home. Currently in Differential Diagnosis Differential Diagnoses: The differential diagnosis associated with the presentation includes Renal colic Admission/Observation Consideration of admission/observation: Escalation of care including admission/observation considered Lab Data [facility] Lab Attestation statement: I reviewed the patient's lab results. 08/14/23 04:29 08/14/23 04:29 Labs: Lab Results 08/14/23 Range/Units 04:29 WBC 14.9 H (4.8-10.8) X10*3/uL RBC 4.86 (4.60-5.80) X10*6/uL Hgb 15.5 (14.0-18.0) g/dl Hct 45.7 (42.0-52.0) % MCV 94.0 (80.0-98.0) fL MCH 31.9 (27.0-33.0) pg MCHC 33.9 (31.0-36.0) g/dl RDW 13.1 (11.0-16.0) % Plt Count 215 (160-400) X10*3/uL MPV 10.0 (9.4-12.4) fL Absolute Nucleated RBC 0.000 (0.0-0.012) X10*3/uL Nucleated RBC % (auto) 0.0 (0.0-0.2) /100WBC Sodium 141 (135-145) mmol/L Potassium 3.9 (3.3-5.1) mmol/L Chloride 106 (96-108) mmol/L Carbon Dioxide 24 (22-29) mmol/L Anion Gap 15 (12-20) BUN 13 (9-16) mg/dL Creatinine 1.70 H (0.5-1.4) mg/dL Estim Creat Clear Calc 64.6 Estimated GFR 46 Random Glucose 149 H (60-115) mg/dL Calcium 8.8 (8.4-10.2) mg/dL Total Bilirubin 0.6 (0.0-1.0) mg/dL AST 26 (5-37) U/L ALT 34 (0-40) U/L Alkaline Phosphatase 66 (39-117) U/L Total Protein 7.4 (6.5-8.0) g/dL Albumin 4.2 (3.5-5.0) g/dL Lipase 61 (8-78) U/L Independent Interpretation I performed an independent interpretation of an: CT Scan Radiology Impression Discussion of test interpretation with radiology: I have reviewed the radiologist's reading. Independent Historian Clinical information obtained from an independent historian. History obtained from or confirmed by: Spouse Medications Administered Discontinued Medications Generic Name Dose Route Start Last Admin Trade Name Mavis PRN Reason Stop Dose Admin Hydromorphone HCl 0.5 mg 08/14/23 05:04 08/14/23 05:09 Hydromorphone Hcl 0.5 Mg/0.5 Ml Syringe IVPUSH 08/14/23 05:05 0.5 mg ONCE ONE Administration Protocol Hydromorphone HCl 0.5 mg 08/14/23 06:08 08/14/23 06:18 Hydromorphone Hcl 0.5 Mg/0.5 Ml Syringe IVPUSH 08/14/23 06:09 0.5 mg ONCE ONE Administration Protocol Sodium Chloride 1,000 mls @ 999 mls/hr 08/14/23 05:15 08/14/23 05:18 Ns IV 08/14/23 06:15 999 mls/hr .Q1H1M GINA Administration Ketorolac Tromethamine 30 mg 08/14/23 05:04 08/14/23 05:08 Ketorolac Tromethamine 30 Mg/Ml Vial IVPUSH 08/14/23 05:05 30 mg ONCE ONE Administration Ondansetron HCl 4 mg 08/14/23 05:04 08/14/23 05:08 Ondansetron Hcl 4 Mg/2 Ml Vial IVPUSH 08/14/23 05:05 4 mg ONCE ONE Administration Discharge Plan Discharge Clinical Impression: Renal colic Patient Disposition: Home, Self-Care Instructions: Renal Colic (ED) Prescriptions: New tamsulosin [Flomax] 0.4 mg capsule 0.4 mg PO DAILY Qty: 7 0RF ondansetron 4 mg tablet,disintegrating 4 mg PO TID PRN (Reason: nausea and vomiting) 5 Days Qty: 10 0RF oxycodone 5 mg tablet 5 mg PO Q8H PRN (Reason: pain) Qty: 7 0RF Rx Instructions: Partial Fill upon patient request. No Action oxycodone 5 mg tablet 5 mg PO Q8H PRN (Reason: pain) Qty: 7 0RF clindamycin HCl [Cleocin HCl] 300 mg capsule 300 mg PO QID 5 Days Qty: 20 0RF oxycodone 5 mg tablet 5 mg PO Q6H PRN (Reason: pain) 3 Days Qty: 12 0RF Rx Instructions: Partial Fill upon patient request. Right rib contusion naproxen 500 mg tablet 500 mg PO BID PRN (Reason: pain) Qty: 14 0RF
[2023-08-14] MEDS: ondansetron HCL 4 MG/2 ML VIAL IVPUSH ×2 (05:08→09:22)
[2023-08-14] MEDS: Ketorolac Tromethamine 30 MG/ML VIAL IVPUSH (05:08)
[2023-08-14] MEDS: HYDROmorphone HCl 0.5 MG/0.5 ML SYRINGE IVPUSH ×2 (05:09→06:18)
[2023-08-14] MEDS: 0.9 % Sodium Chloride 1,000 ML 999 ML IV ×2 (05:18→08:31)
[2023-08-14 06:52] LABS: Amphetamine Screen Urine Not Detected (Not Detect); Barbiturates, Urine Not Detected (Not Detect); Benzodiazepines Screen Urine Not Detected (Not Detect); Cannabinoid Screen Urine POSITIVE (Not Detect); Cocaine Screen Urine Not Detected (Not Detect); Fentanyl, urine Not Detected (Not Detect); Opiate Screen Urine Not Detected (Not Detect); Phencyclidine Screen Urine Not Detected (Not Detect)
[2023-08-14 07:47] LABS: Appearance Urine Clear; Color Urine Yellow; Glucose Urine UA Negative (Negative); Leukocyte Esterase Urine Small (1+) (Negative); Nitrite Urine Negative (Negative); PH 5.5 (5.0-9.0); Specific Gravity - Urine 1.025 (1.005-1.025); UMIC TRIGGER UA YES; Urine Blood Moderate (2+) (Negative); Urine Ketones Negative (Negative); Urine Protein Trace mg/dL (Neg-Trace)
[2023-08-14 07:52] LABS: Bacteria Urine 1+ (None Seen); RBC Urine >20 /HPF (0-2); WBC Urine 21-50 /HPF (0-5)
[2023-08-14] MEDS: cefTRIAXone sodium 1 GM in 0.9 % Sodium Chloride 50 ML IV (08:33)
[2023-08-14 09:54] LABS: Creatinine Clr Calc Pharmacy 81.3; Estimated Glomerular Filt Rate 59
[2023-08-14 10:00] VITALS: BP 142/98; PULSE 68; RESP 18; TEMP 36.4; O2SAT 95
== END 2023-08-14 10:39 | disposition home or self-care (01) ==
PROVIDERS: Emergency Medicine; Emergency Provider Emergency Medicine Emergency Medical Services
DX: K80.50 Calculus of bile duct without cholangitis or cholecystitis without obstruction (principal); R10.13 Epigastric pain; R11.0 Nausea; Z79.899 Other long term (current) drug therapy
CPT/HCPCS: 36415; 74176; 80053; 80307; 81001; 82565; 83690; 85027; 96361; 96374; 96375; 96376; 99284; J0696; J1170; J1885; J2405